=== PATIENT | male | born 1995 | race Caucasian/White ===

== ENCOUNTER 2021-04-08 07:18 | Outpatient (CLI) | payer OTHER ==
--- NOTE | 2021-04-08 10:16 | MRI Report ---
PROCEDURE: Knee LT W/O INDICATIONS: LEFT KNEE EFFUSION TECHNIQUE: Noncontrast sagittal PD fast spin echo and T2 fast spin echo with fat saturation, sagittal 3-D gradie nt sequence with fat saturation; coronal T1 spin echo and PD fast spin echo with fat saturation, and axial PD fast spin echo with fat saturation through the knee. COMPARISON: None. FINDINGS: Image quality: Excellent. Menisci: The medial and lateral menisci demonstrate normal morphology and internal signal. The meni scal root ligaments appear intact. Cruciate ligaments: The anterior and posterior cruciate ligaments appear intact. Medial structures: The medial collateral ligament appears intact. Visualized portions of the pes ans erinus tendons appear normal. No abnormal bursal fluid. Lateral structures: The lateral collateral ligament, long and short heads of the biceps femoris tend on appear intact. The popliteus tendon appears normal. Iliotibial band appears normal. Anterior structures: The quadriceps and patellar tendons appear intact. There is mild T2 signal sirena vation within the quadriceps tendon at the patellar insertion site. Patellar alignment is normal. No femoral trochlear dysplasia or ventral trochlear prominence. No edema in the infrapatellar fat pad. Bones and cartilage: No bone marrow contusions or fractures. Chronic fragmentation of the anterior t ibial tubercle is present. Joint space: There is a moderate knee joint effusion. No Roldan?s cyst. Normal appearing synovial pl icae are incidentally noted. IMPRESSION: 1. No internal derangement. 2. Remote [place]-Schlatter disease. 3. Knee joint effusion. 4. Mild quadriceps tendinopathy. Reviewed by: Jamar Jain MD on 04/08/2021 10:15 AM PDT Approved by: Jamar Jain MD on 04/08/2021 10:15 AM PDT Station ID: [id number]
== END 2021-04-08 07:19 | disposition home or self-care (01) ==
LOC: DI 07:18
DX: M25.462 Effusion, left knee (principal)

== ENCOUNTER 2021-05-10 15:28 | Emergency (ER) | payer OTHER ==
[2021-05-10 15:47] VITALS: BP 146/83
--- NOTE | 2021-05-10 15:54 | ED Physician Documentation ---
PD HPI OPHTHO - Stated complaint Stated Complaint: STYE IN LT EYE - Chief complaint Chief Complaint: Heent - History obtained from History obtained from: Patient - Additional information Additional information: Several days of a painful stye of the left upper eyelid. No change in vision. 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 Review of Systems Constitutional: reports: Reviewed and negative Eyes: reports: Reviewed and negative Ears: reports: Reviewed and negative Nose: reports: Reviewed and negative PD PAST MEDICAL HISTORY - Past Medical History Past Medical History: No Cardiovascular: None Respiratory: None Neuro: None Endocrine/Autoimmune: None GI: None : None HEENT: None Psych: None Musculoskeletal: None Derm: None - Past Surgical History Past Surgical History: No - Present Medications Home Medications: Ambulatory Orders Medication Instructions Recorded Confirmed Erythromycin Base [Erythromycin 1 appful OP 5XD 7 Days #1 gm 05/10/21 Ophthalmic Ointment] - Allergies Allergies/Adverse Reactions: Allergies Allergy/AdvReac Type Severity Reaction Status Date / Time No Known Drug Allergies Allergy Verified 05/10/21 15:47 - Social History Does the pt smoke?: No Smoking Status: Never smoker Does the pt drink ETOH?: No Does the pt have substance abuse?: No - Immunizations Immunizations are current?: Yes PD ED PE NORMAL - Vitals Vital signs reviewed: Yes - General General: Alert and oriented X 3, No acute distress - HEENT HEENT: PERRL, EOMI, Other (He has a swollen stye to the left upper eyelid with out spreading cellulitis.) - Neuro Neuro: Alert and oriented X 3, Normal speech Results - Vitals Vitals: Vital Signs - 24 hr 05/10/21 15:45 Temperature 37.1 C Heart Rate 63 Respiratory 16 Rate Blood Pressure 146/83 H O2 Saturation 100 Oxygen O2 Source Room air Departure - Departure Disposition: Home, Self Care Clinical Impression: Stye Qualifiers: Laterality: left Eyelid: upper Qualified Code(s): H00.014 - Hordeolum externum left upper eyelid Condition: Good Record reviewed to determine appropriate education?: Yes Instructions: ED [facility] Follow-Up: Musa Guzman MD [Provider Admit Priv/Credential] - Prescriptions: Erythromycin Base [Erythromycin Ophthalmic Ointment] 1 appful OP 5XD 7 Days #1 gm Comments: Use antibiotic ointment, warm compresses several times a day as discussed. You should follow-up with an letterer, name and numbers on this form but you may need a formal referral from your flight surgeon. Return for new or worsening symptoms.
== END 2021-05-10 15:56 | disposition home or self-care (01) ==
LOC: ED 15:28
DX: H00.014 Hordeolum externum left upper eyelid (principal)
CPT/HCPCS: 99282